=== PATIENT | male | born 1995 | race African-American/Black ===

== ENCOUNTER 2017-09-22 04:59 | Emergency (ER) | payer SELFPAY ==
[~2017-09-22 04:59] MED LIST: CEPH500C3 PO; CIPR500T4 PO; DICL50 PO; RISP1 PO; TRAZ50TA4 PO
[2017-09-22 05:00] VITALS: BP 166/98; PULSE 78; RESP 16; TEMP 97.9; O2SAT 97
--- NOTE | 2017-09-22 05:23 | PD ---
HPI Chief Complaint: Oral / Dental Pain or Problem Time Seen by Provider: 05:20 Travel History International Travel<30 days: No Contact w/Intl Traveler<30days: No Traveled to known affect area: No History of Present Illness HPI 22-year-old male with no significant medical history presents to emergency department for evaluation of right mandibular first molar pain for several days. He has chipped the tooth that he has not had it evaluated by dental staff. He states at times the pain flares up and he generally takes an antibiotic and her closely. He has developed a bump on the gingiva adjacent to this area. Denies fever or chills. Pain is constant, throbbing, 8 at 10. Denies any trauma. He has no other symptoms to report. PFSH Past Medical History ADHD: Yes Anxiety: Yes Depression: Yes Diminished Hearing: No Immunizations Current: Yes Past Surgical History Surgical History: No Previous Surgery Social History Alcohol Use: Yes (OCC) Tobacco Use: Yes (<1 PPD) Substance Use: Yes Allergies-Medications (Allergen,Severity, Reaction): Coded Allergies: No Known Allergies (Verified Adverse Reaction, Unknown, 09/22/17) Reported Meds & Prescriptions Reported Meds & Active Scripts Active Ibuprofen 800 Mg Tab 800 Mg PO Q8H PRN Peridex Liq (Chlorhexidine Gluconate (Mouth) Liq) 0.12% Soln 15 Ml SWISH-SPIT BID Penicillin V Potassium 500 Mg Tab 500 Mg PO Q8H Review of Systems Except as stated in HPI: all other systems reviewed are Neg Physical Exam Narrative GENERAL: Well-nourished, well-developed male patient in no acute distress SKIN: Focused skin assessment warm/dry. HEAD: Normocephalic. No erythema or edema EYES: No scleral icterus. No injection or drainage. ENT: Mucosa pink and moist. No erythema or exudates. No uvular edema. No uvular , palatal, or tonsillar deviation. Airway patent. Nasal turbinates appear normal without nasal blood, purulent drainage or septal hematoma. DENTAL: No loose teeth. The right first mandibular molar is broken in half with a dental caries noted as well. There is a small area of erythema adjacent to this tooth.. No malocclusion. NECK: Supple, trachea midline. No JVD or lymphadenopathy. CARDIOVASCULAR: Regular rate and rhythm without murmurs, gallops, or rubs. RESPIRATORY: Breath sounds equal bilaterally. No accessory muscle use. Data Data Last Documented VS Vital Signs Date Time Temp Pulse Resp B/P (MAP) Pulse Ox O2 Delivery O2 Flow Rate FiO2 09/22/17 05:27 09/22/17 05:00 97.9 78 16 97 Room Air Orders Orders Ed Discharge Order (09/22/17 05:25) MDM Medical Decision Making Medical Screen Exam Complete: Yes Emergency Medical Condition: Yes Medical Record Reviewed: Yes Differential Diagnosis Dental abscess versus dental caries versus gingivitis versus pulpitis Narrative Course 22-year-old male presents emergency department for evaluation of dental pain. Patient does have a chipped right mandibular first molar with a large dental carry an associated gingival erythema and edema. Patient will be treated for this with oral antibiotics, pain control, and Peridex oral rinse. He is encouraged follow-up with primary care provider, seek dental evaluation, and return immediately with any acute worsening of symptoms. Diagnosis Primary Impression: Dental abscess Additional Impressions: Dentalgia Chipped tooth Qualified Codes: S02.5XXB - Fracture of tooth (traumatic), initial encounter for open fracture Referrals: Dentist Primary Care Physician Patient Instructions: Dental Abscess (ED), General Instructions Additional Instructions: It is important that you follow-up with a dentist. This problem will recur until your tooth is fixed Return immediately to the emergency department with any acute worsening symptoms Med/Other Pt SpecificInfo: Prescription(s) given Scripts Ibuprofen (Ibuprofen) 800 Mg Tab 800 MG PO Q8H Y for Pain/Inflammation, #30 TAB 0 Refills Prov: Ludy Arevalo 09/22/17 Chlorhexidine Gluconate (Mouth) Liq (Peridex Liq) 0.12% Soln 15 ML SWISH-SPIT BID, #473 ML 0 Refills Prov: Ludy Arevalo 09/22/17 Penicillin V Potassium (Penicillin V Potassium) 500 Mg Tab 500 MG PO Q8H for Infection, #30 TAB 0 Refills Prov: Ludy Arevalo 09/22/17 Disposition: 01 DISCHARGE HOME Condition: Stable Ludy Arevalo Sep 22, 2017 05:23
[2017-09-22] MEDS ORDERED: PERI0.126 SWISH-SPIT (05:28)
[2017-09-22] MEDS ORDERED: PENI500T PO (05:28)
[2017-09-22] MEDS ORDERED: IBUP1TAB7 PO (05:28)
== END 2017-09-22 05:37 | disposition home or self-care (01) ==
LOC: NEPD 04:59
DX: K04.7 Periapical abscess without sinus (principal); S02.5XXA Fracture of tooth (traumatic), initial encounter for closed fracture; F90.9 Attention-deficit hyperactivity disorder, unspecified type; F41.9 Anxiety disorder, unspecified; F32.9 Major depressive disorder, single episode, unspecified; F17.200 Nicotine dependence, unspecified, uncomplicated; X58.XXXA Exposure to other specified factors, initial encounter; Z79.899 Other long term (current) drug therapy
CPT/HCPCS: 99283